=== PATIENT | female | born 1960 | race Caucasian/White ===

== ENCOUNTER 2024-06-16 17:44 | Emergency (ER) | payer OTHER, SELFPAY ==
--- NOTE | 2024-06-16 18:00 | ECG_ITS ---
Test Reason : LIGHTHEADEDNESS Blood Pressure : / mmHG Vent. Rate : 074 BPM Atrial Rate : 074 BPM P-R Int : 156 ms QRS Dur : 086 ms QT Int : 428 ms P-R-T Axes : 040 -12 049 degrees QTc Int : 475 ms Normal sinus rhythm Minimal voltage criteria for LVH, may be normal variant ( R in aVL ) Borderline ECG No previous ECGs available Referred By: Toro Ferguson Electronically Signed By:KRYSTINA COUGHLIN
[2024-06-16 18:27] VITALS: BP 114/62; BP 122/84; PULSE 72; PULSE 90; RESP 16; TEMP 37; O2SAT 98; BMI 27.5
[2024-06-16] MEDS: Lactated Ringers 1,000 ML 999 ML IV (18:36)
[2024-06-16 18:49] LABS: MANUAL DIFF FLAG NO
[2024-06-16 18:51] LABS: Basophils Absolute Auto 0.1 X10*3/uL (0.0-0.2); Basophils Percent Auto 0.4 % (0-2); Eosinophils Absolute Auto 0.1 X10*3/uL (0.0-0.4); Hematocrit 39.7 % (37.0-47.0); Hemoglobin 13.3 g/dl (12.0-16.0); Imm Gran Abs Auto 0.06 X10*3/uL (0.00-0.03); Imm Gran Pct Auto 0.5 % (0.0-0.4); Lymphocytes Absolute Auto 1.7 X10*3/uL (1.2-4.9); Lymphocytes Percent Auto 12.9 % (20-40); Mean Corpuscular HGB Conc 33.5 g/dl (31.0-35.0); Mean Corpuscular Hemoglobin 32.3 pg (27.0-33.0); Mean Corpuscular Volume 96.4 fL (80.0-98.0); Monocytes Absolute Auto 0.6 X10*3/uL (0.1-1.2); Monocytes Percent Auto 4.4 % (2-11); Neutrophils Absolute Auto 10.7 x10*3/uL (2.0-8.3); Neutrophils Percent Auto 80.8 % (45-73); Platelet Count 270 X10*3/uL (160-400); Red Blood Count 4.12 X10*6/uL (4.20-5.50); Red Cell Distribution Width 12.7 % (11.0-16.0); White Blood Count 13.2 X10*3/uL (4.8-10.8)
[2024-06-16 19:05] LABS: Anion Gap 14 (12-20); Blood Urea Nitrogen 17 mg/dL (9-16); Calcium 9.4 mg/dL (8.4-10.2); Carbon Dioxide 23 mmol/L (22-29); Chloride 107 mmol/L (96-108); Creatinine Clr Calc Pharmacy 60.1; Estimated Glomerular Filt Rate 59; Glucose Random 157 mg/dL (60-115); Sodium 140 mmol/L (135-145)
[2024-06-16 19:33] LABS: Influenza A PCR NEGATIVE (Negative); Influenza B PCR NEGATIVE (Negative); Resp Syncy Virus RNA Qual PCR NEGATIVE (Negative); SARS COV2 PCR INHOUSE NEGATIVE (Negative)
--- NOTE | 2024-06-16 19:52 | ED.GENADULT ---
HPI - General Adult General Chief complaint: General Medical Stated complaint: HYPOTENSION, DIAPHROETIC, ABD PAIN PER EMS Time Seen by Provider: 06/16/24 17:59 Source: patient Mode of arrival: EMS Limitations: no limitations History of Present Illness HPI narrative: This is a 63-year-old woman with a past medical history of hypertension, chronic back pain who is brought in by EMS for evaluation. EMS reports that they were called due to patient experiencing lightheadedness with near-syncope and hypotension with diaphoresis. 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 EMS states that patient was normotensive for them and route to the hospital. EMS reports providing 500 cc IV fluids and Zofran due to nausea. Patient states that she had sensation to have a bowel movement and subsequently began to feel lightheaded. She reports this continued for a short while. She reports feeling as if she was going to faint. She states that she did not lose consciousness. She states that she did not hit her head. She states no associated chest pain or dyspnea. She states no abdominal pain. She states no recent fever, chills or cough. She states no melena or hematochezia. She states no recent trauma. She reports feeling well at this time and states that she feels thirsty. She states that she has no cardiac or pulmonary disease history. Patient states that her is sick with the COVID-19 at home at this time. She states that they work different shifts and reports that they sleep in different beds. She states that she has not been feeling sick with headache, cough, congestion myalgias. Related Data Allergies Allergy/AdvReac Type Severity Reaction Status Date / Time Unable to Assess Allergy Verified 06/16/24 18:29 Review of Systems Review of Systems: ROS as per HPI [facility] Social History Social History Smoked in Last 30 Days: No Use of substances other than those prescribed or required for medical reasons: No Advance Directives: No Advance Directives Information Provided: Yes Do you have a plan to hurt others: No Plan Patient : No Physical Exam ED Vital Signs: Vital Signs - 24 hr 06/16/24 18:27 Temperature 98.6 F Pulse Rate 72 Respiratory Rate 16 Blood Pressure 114/62 Pulse Oximetry 98 Oxygen Delivery Method Room Air BMI result Body Mass Index 27.5 Gen: NAD, AOx3 HEENT: NCAT, EOMI, normal conjunctiva CV: RRR, no murmurs appreciated, 2+ bilateral radial pulses Pulm: CTAB, no increased work of breathing GI: Soft, NTND, no rebound, guarding or rigidity Neuro: Grossly non focal Medications Administered Discontinued Medications Generic Name Dose Route Start Last Admin Trade Name Payton PRN Reason Stop Dose Admin Lactated Ringer's 1,000 mls @ 999 mls/hr 06/16/24 18:00 06/16/24 18:36 Lr IV 06/16/24 19:00 999 mls/hr .Q1H1M ONE Administration Medical Decision Making Medical Decision Making [facility] Narrative: Differential diagnosis includes, but is not limited to vasovagal syncope, near-syncope, orthostasis, arrhythmia. Patient is afebrile and hemodynamically stable on room air. Exam is benign and reassuring. I reviewed and interpreted labs, which are noncontributory. I reviewed and interpreted EKG, which is unremarkable for any acute findings. Patient has negative for COVID-19, influenza and RSV. I suspect patient's symptoms are likely secondary to vasovagal episode with near syncope a given her history of lightheadedness associated with a bowel movement that was transient in nature and associated with initial hypotension. On re-examination, patient is well-appearing and in no acute distress. ?Patient states symptoms have resolved. ?Patient is tolerating p.o. intake in his independently ambulatory. There is no indication for further emergent evaluation in this otherwise well-appearing patient as above. ?Patient is provided written and verbal instructions, educational materials, recommendations for outpatient follow-up, strict return precautions and teach back is performed. ?Patient states understanding and agreement with plan of care. ?Patient is discharged home in stable and improved condition. Admission/Observation Consideration of admission/observation: Escalation of care including admission/observation considered Lab Data [facility] Lab Attestation statement: I reviewed the patient's lab results. I reviewed and interpreted labs which as below unremarkable. 06/16/24 18:42 06/16/24 18:42 Labs: Lab Results 06/16/24 Range/Units 18:42 WBC 13.2 H (4.8-10.8) X10*3/uL RBC 4.12 L (4.20-5.50) X10*6/uL Hgb 13.3 (12.0-16.0) g/dl Hct 39.7 (37.0-47.0) % MCV 96.4 (80.0-98.0) fL MCH 32.3 (27.0-33.0) pg MCHC 33.5 (31.0-35.0) g/dl RDW 12.7 (11.0-16.0) % Plt Count 270 (160-400) X10*3/uL MPV 9.0 L (9.4-12.3) fL Immature Gran % (Auto) 0.5 H (0.0-0.4) % Neut % (Auto) 80.8 H (45-73) % Lymph % (Auto) 12.9 L (20-40) % [place] % (Auto) 4.4 (2-11) % Eos % (Auto) 1.0 (0-4) % Baso % (Auto) 0.4 (0-2) % Lymph # (Auto) 1.7 (1.2-4.9) X10*3/uL [place] # (Auto) 0.6 (0.1-1.2) X10*3/uL Eos # (Auto) 0.1 (0.0-0.4) X10*3/uL Baso # (Auto) 0.1 (0.0-0.2) X10*3/uL Abs Immat Gran (auto) 0.06 H (0.00-0.03) X10*3/uL Absolute Neuts (auto) 10.7 H (2.0-8.3) x10*3/uL Absolute Nucleated RBC 0.000 (0.0-0.012) X10*3/uL Nucleated RBC % (auto) 0.0 (0.0-0.2) /100WBC Sodium 140 (135-145) mmol/L Potassium 4.0 (3.3-5.1) mmol/L Chloride 107 (96-108) mmol/L Carbon Dioxide 23 (22-29) mmol/L Anion Gap 14 (12-20) BUN 17 H (9-16) mg/dL Creatinine 0.96 (0.5-1.4) mg/dL Estim Creat Clear Calc 60.1 Estimated GFR 59 Random Glucose 157 H (60-115) mg/dL Calcium 9.4 (8.4-10.2) mg/dL Influenza Type A (PCR) NEGATIVE (Negative) Influenza Type B (PCR) NEGATIVE (Negative) RSV RNA Qual (PCR) NEGATIVE (Negative) SARS-CoV-2 RNA (RT-PCR) NEGATIVE (Negative) Independent Interpretation I performed an independent interpretation of an: EKG Interpretation: EKG demonstrates sinus rhythm 74 beats per minute, PA 156, QRS 86, QTC 475, no epsilon waves, no Brugada morphology, no ST/T-wave changes, no STEMI, no delta wave, no dagger-like Q-waves Discharge Plan Discharge Clinical Impression: Vasovagal near syncope Patient Disposition: Home, Self-Care Instructions: Near Syncope (ED) Additional Instructions: You were seen and evaluated in the emergency room. Your vital signs were stable. Your cell blood count and basic metabolic panel were unremarkable. Your EKG was normal. Please follow-up with your primary care doctor in the next 5-7 days. Please note ypur workup is not complete until you follow-up with your primary care doctor. Please call them for an appointment. Please return to the emergency room if you develop any new or concerning symptoms including, but not limited to severe headache, vomiting, chest pain, difficulty breathing, severe abdominal pain, bloody stools, palpitations, lightheadedness or loss of consciousness. Print Language: Norwegian
[2024-06-16 20:10] VITALS: BP 124/75; PULSE 65; RESP 16; TEMP 36.6; O2SAT 98
[2024-06-16 20:29] VITALS: BP 124/75; PULSE 65; RESP 16; TEMP 36.6; O2SAT 98
== END 2024-06-16 20:34 | disposition home or self-care (01) ==
PROVIDERS: Emergency Provider Emergency Medicine
DX: R55 Syncope and collapse (principal); Z03.818 Encounter for observation for suspected exposure to other biological agents ruled out; I10 Essential (primary) hypertension
CPT/HCPCS: 0241U; 80048; 85025; 93005; 96360; 96361; 99284; 99285; J7120

== ENCOUNTER → 2024-06-16 18:00 | Outpatient (BNV) | payer OTHER, SELFPAY | PROVIDERS: Emergency Provider Emergency Medicine; Visit Provider Internal Medicine | DX: R55 Syncope and collapse (principal) | CPT/HCPCS: 93010 ==